=== PATIENT | male | born 1970 | race Caucasian/White ===

== ENCOUNTER → 2017-09-07 | Outpatient (CLI) | payer BC ==
[2017-09-07 19:25] LABS: CHLAM PCR NOT DETECTED (NOT DETECT); GON PCR DETECTED (NOT DETECT)
== END ==
LOC: OD 16:10
PROVIDERS: ATTEND Nurse Practitioner Acute Care
DX: R30.0 Dysuria (principal)
CPT/HCPCS: 87491; 87591

== ENCOUNTER 2017-11-25 04:03 | Emergency (ER) | payer BC ==
[2017-11-25 04:09] VITALS: BP 119/100
[2017-11-25] MEDS ORDERED: LIDOCAINE 1% INJ (10 MG/ML) 10 ML MDV INJ ONE (05:00)
[2017-11-25] MEDS ORDERED: BUPIVACAINE HCL 0.5 % INJ/PF 30 ML SDV INJ ONE (05:00)
--- NOTE | 2017-11-25 05:56 | ER Document Report ---
ED Oral Problem - General Chief Complaint: Toothache Stated Complaint: TOOTH PAIN Time Seen by Provider: 11/25/17 04:56 Information source: Patient Notes: Patient is a 47-year-old male comes emergency room complaining of right lower jaw dental pain for the past 2 weeks. Patient states that the pain is gotten more intense over the last 24 hours and he cannot stand the pain anymore. States he is trying to get something set up to where he can have a tooth pulled but currently is not able to do so. Patient has a history of hypertension and oral dependent diabetes. TRAVEL OUTSIDE OF THE [place] IN LAST 30 DAYS: No - HPI Patient complains to provider of: Toothache Onset: Other Onset: Gradual Quality of pain: Sharp, Stabbing, Throbbing Severity: Moderate Pain Level: 3 Associated symptoms: Jaw pain, Toothache Worsened by: Cold Relieved by: Nothing Similar symptoms previously: Yes Recently seen / treated by doctor/dentist: No Past Medical History - General Information source: Patient, Relative - Social History Smoking Status: Former Smoker Cigarette use (# per day): No Chew tobacco use (# tins/day): No Smoking Education Provided: No Frequency of alcohol use: Rare Drug Abuse: None Family History: Reviewed & Not Pertinent Review of Systems - Review of Systems Constitutional: No symptoms reported EENT: Mouth pain, Dental problem Cardiovascular: No symptoms reported Respiratory: No symptoms reported Gastrointestinal: No symptoms reported Genitourinary: No symptoms reported Male Genitourinary: No symptoms reported Musculoskeletal: No symptoms reported Skin: No symptoms reported Hematologic/Lymphatic: No symptoms reported Neurological/Psychological: No symptoms reported -: Yes All other systems reviewed and negative Physical Exam - Vital signs Vitals: Temp Pulse Resp BP Pulse Ox 97 F L 114 H 20 119/100 H 94 11/25/17 04:07 11/25/17 04:07 11/25/17 04:07 11/25/17 04:07 11/25/17 04:07 Interpretation: Hypertensive, Tachycardic - Notes Notes: Patient is well-nourished well-developed male who is in obvious pain and discomfort. - General General appearance: Alert, Anxious In distress: Moderate - HEENT Head: Normocephalic, Atraumatic Eyes: Normal Sinus: No: Normal, Abnormal, Tenderness Nasal: No: Normal, Bloody discharge, Sandro deformity, Ecchymosis, Epistaxis, Septal hematoma, Swelling, Clear rhinorrhea Mouth/Lips: Normal, Other - Examination patient's oral cavity shows that he has multitude of dental decay throughout the mouth. Primary septic today's right lower back second molar there appears to be a little fracture at the base of the tooth more on the anterior portion. Decay is also noted in the middle of the tooth and down the backside from what can be seen. There is some mild swelling and erythema around the gum tooth line with no exudate noted. There is sensitivity to palpation of the tooth itself. Externally there is no visible signs of facial swelling.. No: Angioedema Mucous membranes: Moist Pharynx: Normal. No: Blood in hypopharynx - Respiratory Respiratory status: No respiratory distress Chest status: Nontender Breath sounds: Normal. No: Rales, Rhonchi, Stridor, Wheezing Chest palpation: Normal - Cardiovascular Rhythm: Tachycardia Heart sounds: Normal auscultation Murmur: No - Neurological Neuro grossly intact: Yes Cognition: Normal Orientation: AAOx4 [place] Coma Scale Eye Opening: Spontaneous [place] Coma Scale Verbal: Oriented [place] Coma Scale Motor: Obeys Commands [place] Coma Scale Total: 15 Speech: Normal - Skin Skin Temperature: Warm Skin Moisture: Moist Skin Color: Normal Course - Re-evaluation Re-evalutation: 11/25/17 06:21 I did a dental block on patient. I used 1 mL of 1% lidocaine and 1 mL of 0.5% Sensorcaine and 2 a 3 mL syringe and a 1-1/2 inch 25-gauge needle. I injected anterior to the decayed painful tooth itself right at the gum and cheek line. I injected slowly over a period of about a minute and a half and waited for results. After about 2 minutes patient stated that it is not helping at all and was pounding his fist on the bed. I have never seen a dental block not have some partial pain relief. Patient stated it was even worse than before. He grabs a couple of ice and throws ice on his fractured dental tooth and states that is more relaxing. I am placing him on clindamycin and I did give him some pain medication since he allowed me to inject him into the local area. I have informed him we are not dentists and cannot fix this problem and he should follow-up with a dentist as soon as possible. - Vital Signs Vital signs: Temp Pulse Resp BP Pulse Ox 97 F L 114 H 20 119/100 H 94 11/25/17 04:07 11/25/17 04:07 11/25/17 04:07 11/25/17 04:07 11/25/17 04:07 Discharge - Discharge Clinical Impression: Pain, dental Condition: Stable Disposition: HOME, SELF-CARE Instructions: [facility], Clindamycin ([facility]), Toothache ([facility]) Additional Instructions: As I have informed you I cannot fix this problem. We are not dentist in the emergency room. I have given you antibiotics and pain medication that will stop it for a while but will not fix that. You must see a dentist as soon as possible. Should you have any concerns or problems if you get more swelling in the face spike a fever return to ER for recheck. There is highly important he take all the antibiotics. Prescriptions: Clindamycin HCl 300 mg PO QID #40 capsule Hydrocodone/Acetaminophen [[place] 7.5-325 mg Tablet] 1 tab PO Q6 #12 tablet Ibuprofen 800 mg PO TID #30 tablet Forms: Elevated Blood Pressure Referrals: YANIRA MOSELEY DO [Primary Care Provider] - Follow up as needed
[2017-11-25] MEDS ORDERED: OXYCODONE-ACETAMINOPHEN 5-325 MG TABLET PO ONE (06:12)
== END 2017-11-25 06:26 | disposition home or self-care (01) ==
LOC: ER 04:03
PROC: 3E0T3BZ Introduction of Anesthetic Agent into Peripheral Nerves and Plexi, Percutaneous Approach (ICD-10-PCS; principal; 2017-11-25)
DX: K08.89 Other specified disorders of teeth and supporting structures (principal); R68.84 Jaw pain; I10 Essential (primary) hypertension; E11.9 Type 2 diabetes mellitus without complications; Z79.84 Long term (current) use of oral hypoglycemic drugs; Z87.891 Personal history of nicotine dependence; F41.9 Anxiety disorder, unspecified
CPT/HCPCS: 99282